=== PATIENT | female | born 1985 | race Caucasian/White ===

== ENCOUNTER 2017-11-24 14:13 | Emergency (ER) | payer OTHER ==
[2017-11-24] MEDS: ONDANSETRON 4MG/2ML VIAL (J2405) IV (14:41)
[2017-11-24] MEDS: NS 1,000 ML IV (14:45)
[2017-11-24] MEDS: METOCLOPRAMIDE INJ 10MG/2ML VIAL (J2765) IV (14:52)
[2017-11-24] MEDS: KETOROLAC 30 MG/ML VIAL (J1885) IV (14:53)
[2017-11-24] MEDS: ACETAMINOPHEN 325 MG TAB PO (14:54)
== END 2017-11-24 16:40 | disposition home or self-care (01) ==
LOC: M ED 14:13
DX: G43.709 Chronic migraine without aura, not intractable, without status migrainosus (principal); Z88.5 Allergy status to narcotic agent; Z79.899 Other long term (current) drug therapy
CPT/HCPCS: J2405